=== PATIENT | female | born 1995 | race Caucasian/White ===

== ENCOUNTER 2018-07-28 15:33 | Outpatient (CLI) | payer SELFPAY ==
[~2018-07-28] VITALS: Ht 154.9 cm; Wt 55.1 kg
[2018-07-28 15:48] VITALS: BP 104/59; PULSE 71; Ht 154.9 cm; Wt 55.1 kg
[2018-07-28] MEDS ORDERED: PNV11TAB PO (15:49)
[2018-07-28] MEDS ORDERED: CEFTRIAXONE 1 GM/50 ML (PMX) 50 ML IVPB ONE (18:30)
[2018-07-28] MEDS ORDERED: SOD CHLORIDE 0.9% 1,000 ML IV SCH (18:30)
--- NOTE | 2018-07-28 21:00 | PN ---
Date/Time of Note Date/Time of Note DATE: 07/28/18 TIME: 20:55 OB Subjective Subjective Subjective dysuria, back pain OB Objective HEENT: WNL Heart: Rhythm Normal Abdomen: WNL Cervical Dilatation: None OB Assessment/Plan Reason for admission: other (IUP 26 weeks, no prenathal care, UTI, no CVA tenderness) Induction Method: other (IV antibiotics, d/c home with po Microbid, folow up on Tuesday, instructionts are given) VAHID HARMAN MD July 28, 2018 21:00
--- NOTE | 2018-07-29 00:56 | TRIAGE ---
OB Triage Datetime Report Generated by CPN: 07/29/2018 00:55 Datetime: 07/28/2018 19:17 Vaginal Exam Membrane Status: Intact Datetime: 07/28/2018 19:00 Stage of : OB Triage Datetime: 07/28/2018 17:59 Stage of : OB Triage Datetime: 07/28/2018 17:31 Labor Evaluation Frequency: 0 Monitor Mode: External Pattern: Normal: <= 5 Contractions in 10 Minutes Resting Tone [place]: Relaxed Heart Rate FHR Baseline Rate: 125 Monitor Mode: External US Variability: Moderate 6-25 bpm Accelerations: 10X10 Decelerations: None Category: Category I Pain Assessment Pain Scale: 5 Pain Presence: Constant Pain Type: Pressure; Ache Pain Location: Back; Perineum Pain Goal: 3 Pain Relief Measures: Comfort Measures Datetime: 07/28/2018 16:38 Labor Evaluation Frequency: 0 Monitor Mode: External Pattern: Normal: <= 5 Contractions in 10 Minutes Resting Tone [place]: Relaxed Heart Rate FHR Baseline Rate: 135 Monitor Mode: External US Variability: Moderate 6-25 bpm Decelerations: None Pain Assessment Pain Scale: 7 Pain Presence: Constant Pain Type: Pressure; Ache Pain Location: Back; Perineum Pain Goal: 3 Pain Relief Measures: Comfort Measures Datetime: 07/28/2018 16:05 Stage of : OB Triage Datetime: 07/28/2018 15:44 Stage of : OB Triage Assessment Type: Triage Maternal Assessment Level of Consciousness: Fully Conscious DTR's/Clonus: DTRs 2+; No Clonus Headache: Denies Blurred Vision: No Respiratory Effort: Unlabored; Regular Rhythm; Equal Expansion Breath Sounds, Left: Clear and Equal Breath Sounds, Right: Clear and Equal Nausea/Vomiting: Denies RUQ Epigastric Pain: Denies Facial Edema: None Temperature Route: Axillary Fall Risk Assessment History of Falling: (0) No Secondary Diagnosis: (0) No Ambulatory Aid: (0) Bedrest/Nurse Assist IV Therapy: (0) No Gait: (0) Normal/Bedrest/Immobile Mental Status: (0) Oriented to Own Ability Fall Score: 0 Fall Risk Score Definition: No Risk: No action required Labor Evaluation Frequency: 0 Monitor Mode: External Pattern: Normal: <= 5 Contractions in 10 Minutes Resting Tone [place]: Relaxed Heart Rate FHR Baseline Rate: 135 Monitor Mode: External US Variability: Moderate 6-25 bpm Accelerations: 10X10 Decelerations: None Category: Category I Pain Assessment Pain Scale: 10 Pain Presence: Constant Pain Type: Cramping Pain Location: Perineum Pain Goal: 3 Pain Relief Measures: Comfort Measures Datetime: 07/28/2018 15:43 EGA: 26.5 Datetime: 07/28/2018 15:42 Time of Arrival: 07/28/2018 15:15 Arrived By: Ambulatory Chief Complaint: C/O PERINEAL PAIN TODAY, DENIES LEAKING OR BLEEDING Movement: Present Contractions: Denies/Absent Rupture of Membranes: Denies Vaginal Bleeding: None Vaginal Discharge: Denies Recent Sexual Intercouse: Denies Abdominal Trauma: Not Applicable Patient Complaints: Cramping Initial Plan: MONITOR,
== END 2018-07-28 21:27 | disposition home or self-care (01) ==
LOC: OBT 15:33 → L-D 15:36 → OBT 21:27
PROVIDERS: ATTEND Obstetrics & Gynecology
DX: O26.892 Other specified pregnancy related conditions, second trimester (principal); R30.0 Dysuria; M54.9 Dorsalgia, unspecified; Z3A.26 26 weeks gestation of pregnancy
CPT/HCPCS: 36415; 76815; 76817; 76818; 81001; 85025; 87086; 96360; 96361; G0463; J0696; J7030